=== PATIENT | male | born 1990 | race Caucasian/White ===

== ENCOUNTER 2020-10-14 07:22 | Emergency (ER) | payer BC, OTHER ==
[2020-10-14 07:47] VITALS: BMI 28.5
[2020-10-14] MEDS ORDERED: MAG HYDROX/AL HYDROX/SIMETH 30 ML UNIT-DOSE CUP PO ONE (08:10)
[2020-10-14] MEDS ORDERED: FAMOTIDINE 10 MG TABLET PO ONE (08:11)
[2020-10-14] MEDS ORDERED: DICYCLOMINE HCL 20 MG TABLET PO ONE (08:11)
[2020-10-14] MEDS ORDERED: FAMOTIDINE 20 MG TABLET ONE (08:21)
[2020-10-14] MEDS ORDERED: DICYCLOMINE HCL 10 MG CAPSULE ONE (08:22)
[2020-10-14] MEDS ORDERED: MAG HYDROX/AL HYDROX/SIMETH 30 ML UNIT-DOSE CUP ONE (08:22)
[2020-10-14 09:26] LABS: BASO % 0.3 % (0-2.0); EOS % 1.6 % (0-4.5); HEMATOCRIT 41.7 % (35.4-49); HEMOGLOBIN 14.3 GM/dL (11.7-16.9); LYMPH % 24.1 % (8-40); MCH 30.8 pg (25.7-33.7); MCHC 34.3 g/dl (32.0-35.9); MEAN CELL VOLUME 89.8 fl (80-96); MEAN PLT VOLUME 9.5 fl (7.5-11.1); MONO % 9.6 % (3.8-10.2); NEUT % 64.4 % (42.8-82.8); PLATELET COUNT 199 10^3/uL (134-434); RBC 4.64 M/mm3 (4.00-5.60); RDW 14.6 % (11.9-15.9)
[2020-10-14 09:54] LABS: CALCIUM 9.1 mg/dL (8.5-10.1)
[2020-10-14 09:55] LABS: BLOOD UREA NITROGEN 14.8 mg/dL (7-18)
[2020-10-14 09:57] LABS: CREATININE 1.1 mg/dL (0.55-1.3)
[2020-10-14 09:58] LABS: BILIRUBIN,TOTAL 0.3 mg/dL (0.2-1)
[2020-10-14 09:59] LABS: TOT PROT 7.3 g/dl (6.4-8.2)
[2020-10-14 12:34] VITALS: BP 119/72; PULSE 75; TEMP 98
== END 2020-10-14 11:48 | disposition home or self-care (01) ==
LOC: JER 07:22
DX: K29.00 Acute gastritis without bleeding (principal)
CPT/HCPCS: 36415; 76705-TC; 80053; 83690; 85025; 99284-25